=== PATIENT | male | born 1960 | race Caucasian/White ===

== ENCOUNTER 2017-05-09 12:48 | Emergency (ER) | payer BC ==
[~2017-05-09] VITALS: Ht 182.9 cm; Wt 77.1 kg
[~2017-05-09 12:48] MED LIST: ALPR0.5T PO; LISI-334 PO; OXYC15TA PO
[2017-05-09 13:13] VITALS: BP 147/104
[2017-05-09] MEDS ORDERED: OXYC-323 PO (13:15)
[2017-05-09] MEDS ORDERED: SULF1TAB24 PO (13:15)
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
[2017-05-09] MEDS ORDERED: DIPHTH,PERTUSS(ACELL),TET TOX 0.5 ML DISP.SYRIN. VAX IM ONE (13:45)
[2017-05-09] MEDS ORDERED: SMZ/TMP 800/160MG TABLET. PO ONE (13:45)
[2017-05-09] MEDS ORDERED: oxyCODONE/APAP 5/325 1 TAB TABLET PO ONE (13:45)
== END 2017-05-09 13:33 | disposition home or self-care (01) ==
LOC: ER 12:48
DX: L03.116 Cellulitis of left lower limb (principal); Z88.1 Allergy status to other antibiotic agents
CPT/HCPCS: 90471; 90715; 99283-25

== ENCOUNTER → 2017-08-24 | Outpatient (CLI) | payer BC ==
[~2017-08-24] MED LIST changes: +OXYC-323 PO; +SULF1TAB24 PO
--- NOTE | 2017-08-25 08:23 | RAD ---
Indication abnormal thyroid function tests. Grayscale imaging of the thyroid was performed. No prior imaging of the thyroid is available. The right lobe of the thyroid measures 7 x 1.5 x 1.9 cm. No mass is seen. The left lobe of the thyroid measures 5.8 x 1.6 x 1.7 cm. No discrete mass is seen. The isthmus appeared unremarkable. IMPRESSION: Mildly enlarged thyroid. No dominant nodule seen in either lobe of the thyroid
== END | disposition home or self-care (01) ==
LOC: US 15:20
PROVIDERS: ATTEND Physician Assistant Surgical
DX: E04.1 Nontoxic single thyroid nodule (principal); R94.6 Abnormal results of thyroid function studies
CPT/HCPCS: 76536